=== PATIENT | female | born 1955 | race Hispanic/Latino ===

== ENCOUNTER 2016-04-21 10:40 | Outpatient (CLI) | payer OTHER ==
[2016-04-23 02:02] LABS: HPV High Risk Type 16 Negative (Negative); HPV High Risk Type 18 Negative (Negative); HPV Other High Risk Types Negative (Negative)
== END 2016-04-21 10:41 | disposition home or self-care (01) ==
LOC: MADLABBHPM 10:40
PROVIDERS: ATTEND Family Medicine
DX: Z01.411 Encounter for gynecological examination (general) (routine) with abnormal findings (principal)
CPT/HCPCS: 36415; 87624; 88142; G0123

== ENCOUNTER 2021-01-13 13:35 | Emergency (ER) | payer OTHER ==
[2021-01-13 14:58] LABS: #Basophils 0.1 thou/uL (0.0-0.2); #Eosinphils 0.1 thou/uL (0.0-0.7); #Lymphocytes 1.7 thou/uL (1.20-3.40); #Monocytes 0.7 thou/uL (0.11-0.59); #Neutrophils 8.7 thou/uL (1.40-6.50); %Basophils 0.7 % (0.0-1.0); %Eosinophils 0.7 % (0.0-10.0); %Lymphocytes 15.4 % (21.0-51.0); %Monocytes 5.8 % (0.0-10.0); %Neutrophils 77.5 % (42.0-75.0); Hemoglobin 15.5 g/dL (12.0-16.0); Mean Corpuscular HGB CONC 30.8 g/dL (32.0-36.0); Mean Corpuscular Hemoglobin 26.9 pg (27.0-31.0); Mean Corpuscular Volume 87.3 fL (78.0-98.0); Mean Platelet Volume 6.9 fL (7.4-10.4); Platelet Count 251 thou/uL (130-400); RBC Distribution Width 13.3 % (11.5-14.5); Red Blood Cell (RBC) Count 5.78 mill/uL (4.20-5.40); White Blood Cell (WBC) Count 11.3 thou/uL (4.8-10.8)
[2021-01-13 15:03] LABS: Prothrombin Time 13.1 sec (12.0-14.7)
[2021-01-13 15:10] LABS: ALT (SGPT) 23 U/L (8-55); AST (SGOT) 21 U/L (5-34); Albumin 4.5 g/dL (3.4-4.8); Alkaline Phosphatase 95 U/L (40-110); Anion Gap 14 mmol/L (10-20); BUN (Urea Nitrogen) 10 mg/dL (9.8-20.1); Bilirubin, Total 0.8 mg/dL (0.2-1.2); Calc. Creatinine Clearance 0 mL/min (70-130); Calcium 9.7 mg/dL (7.8-10.44); Carbon Dioxide 25 mmol/L (23-31); Chloride 105 mmol/L (98-107); Globulin 3.9 g/dL (2.4-3.5); Glucose 115 mg/dL (80-115); Potassium 3.8 mmol/L (3.5-5.1); Protein, Total 8.4 g/dL (5.8-8.1); Sodium 140 mmol/L (136-145)
== END 2021-01-13 16:22 | disposition home or self-care (01) ==
LOC: MADERS 13:35
DX: M25.511 Pain in right shoulder (principal); M25.551 Pain in right hip; V83.6XXA Passenger of special industrial vehicle injured in nontraffic accident, initial encounter
CPT/HCPCS: 36415; 70450; 71045; 72125; 80053; 85025; 85610; G0390

== ENCOUNTER 2021-08-12 12:27 | Emergency (ER) | payer OTHER ==
[2021-08-12] MEDS ORDERED: Boostrix 0.5 ML (Tdap) VIAL ONE (12:46)
[2021-08-12] MEDS ORDERED: Bacitracin 1 PK ONE (12:46)
== END 2021-08-12 13:02 | disposition home or self-care (01) ==
LOC: MADERS 12:27
DX: S60.221A Contusion of right hand, initial encounter (principal); W55.09XA Other contact with cat, initial encounter; Z23 Encounter for immunization
CPT/HCPCS: 90471; 90715; 99283